=== PATIENT | male | born 1950 ===

== ENCOUNTER 2022-07-22 18:33 | Inpatient (IN) | payer MEDICARE, OTHER ==
[~2022-07-22] VITALS: Ht 177.8 cm; Wt 97.1 kg
[2022-07-22 21:55] VITALS: BP 149/80
[2022-07-22] MEDS ORDERED: MELATONIN 5 MG TABLET PO PRN (22:00)
[2022-07-22] MEDS ORDERED: DEXTROSE 50%-WATER 25 GM/50 ML SYRINGE IVP PRN (22:00)
[2022-07-22] MEDS ORDERED: INSULIN LISPRO 100 UNITS/ML SQ PRN (22:00)
[2022-07-22] MEDS: DOCUSATE SODIUM 100 MG CAPSULE PO SCH (22:45)
[2022-07-22] MEDS: ETHYL ALCOHOL 62% ANTISEPTIC NASAL SANITIZER 0.6 ML AMPUL NASAL SCH (22:45)
[2022-07-22] MEDS: METOPROLOL TARTRATE 25 MG TABLET PO SCH (22:46)
[2022-07-22] MEDS: APIXABAN 5 MG TABLET PO SCH (22:47)
[2022-07-22] MEDS: TAMSULOSIN HCL 0.4 MG CAPSULE PO SCH (22:47)
[2022-07-22] MEDS: SENNOSIDES 8.6 MG TABLET PO SCH (22:47)
[2022-07-22] MEDS: GABAPENTIN 100 MG CAPSULE PO SCH (22:48)
[2022-07-22] MEDS: ROSUVASTATIN CALCIUM 10 MG TABLET PO SCH (22:48)
[2022-07-22 23:41] LABS: GLUCOMETER DEV NAME(LOC) 2WR.2B; GLUCOSE,POINT OF CARE 117 MG/DL (70-110)
[2022-07-23] MEDS: BACLOFEN 10 MG TABLET PO PRN ×2 (01:25→23:59)
[2022-07-23] MEDS: METOCLOPRAMIDE HCL 10 MG TABLET PO SCH ×3 (06:29→16:56)
[2022-07-23] MEDS: HYDROCODONE/ACETAMINOPHEN 5-325 MG TABLET PO PRN ×2 (06:32→12:13)
[2022-07-23 07:01] LABS: BASOPHILS % (AUTO) 0.3 % (0.0-2.0); EOSINOPHILS % (AUTO) 0.8 % (1.0-6.0); HEMATOCRIT 31.7 % (41-53); HEMOGLOBIN 11.1 g/dL (13.5-17.5); LYMPHOCYTES # (AUTO) 0.7 K/uL (1.0-4.8); LYMPHOCYTES % (AUTO) 8.2 % (22.0-44.0); MEAN CORPUSCULAR HEMOGLOBIN 32.2 pg (26.0-34.0); MEAN CORPUSCULAR VOLUME 92 fL (80-100); MONOCYTES # (AUTO) 0.6 K/uL (0.1-1.0); MONOCYTES % (AUTO) 6.9 % (2.0-9.0); NEUTROPHILS # (AUTO) 7.4 K/uL (1.8-7.7); NEUTROPHILS % (AUTO) 83.8 % (40.0-70.0); PLATELET COUNT (AUTO) 244 K/uL (150-450); RED BLOOD CELL COUNT(AUTO) 3.45 MIL/uL (4.50-5.90)
[2022-07-23 07:13] LABS: ALANINE AMINOTRANSFERASE 62 U/L (12-78); ALBUMIN 2.5 g/dL (3.4-5.0); ALKALINE PHOSPHATASE 97 U/L (46-116); ANION GAP 5 mmol/L (8-16); ASPARTATE AMINOTRANSFERASE 34 U/L (15-37); BILIRUBIN,TOTAL 0.6 mg/dL (0.1-1.0); CALCIUM, TOTAL 8.9 mg/dL (8.8-10.5); CARBON DIOXIDE 30 mmol/L (22-29); CHLORIDE 104 mmol/L (98-107); CREATININE 0.66 mg/dL (0.60-1.30); GLOMERULAR FILTR. RATE CALC > 60 mL/min (>60); GLUCOSE,RANDOM 126 mg/dL (70-110); POTASSIUM 3.9 mmol/L (3.5-5.1); SODIUM SERUM 139 mmol/L (136-145); TOTAL PROTEIN, SERUM 6.1 g/dL (6.4-8.2); UREA NITROGEN, BLOOD 12 mg/dL (7-18)
[2022-07-23 07:55] LABS: GLUCOMETER DEV NAME(LOC) 2WR.1C; GLUCOSE,POINT OF CARE 110 MG/DL (70-110)
[2022-07-23 08:15] VITALS: BP 148/74
[2022-07-23] MEDS: FUROSEMIDE 20 MG TABLET PO SCH (08:26)
[2022-07-23] MEDS: NIFEdipine 90 MG ER TABLET PO SCH (08:27)
[2022-07-23] MEDS: OMEPRAZOLE 20 MG CAPSULE PO SCH (08:27)
[2022-07-23] MEDS: LOSARTAN POTASSIUM 50 MG TABLET PO SCH (08:27)
[2022-07-23] MEDS: APIXABAN 5 MG TABLET PO SCH ×2 (08:28→20:45)
[2022-07-23] MEDS: DOCUSATE SODIUM 100 MG CAPSULE PO SCH ×2 (08:28→21:00)
[2022-07-23] MEDS: GABAPENTIN 100 MG CAPSULE PO SCH ×3 (08:29→20:46)
[2022-07-23] MEDS: MetFORMIN HCL 500 MG TABLET PO SCH ×2 (08:29→17:40)
[2022-07-23] MEDS: METOPROLOL TARTRATE 25 MG TABLET PO SCH ×2 (08:29→20:46)
[2022-07-23] MEDS: LACTULOSE 20 GM/30 ML SOLUTION UDCUP PO SCH ×2 (08:30→21:00)
[2022-07-23] MEDS: POLYETHYLENE GLYCOL 3350 17 GM PACKET PO SCH (08:30)
[2022-07-23] MEDS: ETHYL ALCOHOL 62% ANTISEPTIC NASAL SANITIZER 0.6 ML AMPUL NASAL SCH ×2 (08:30→20:43)
[2022-07-23] MEDS: ACETAMINOPHEN 325 MG TABLET PO PRN (08:46)
[2022-07-23 12:51] LABS: GLUCOMETER DEV NAME(LOC) 2WR.1C; GLUCOSE,POINT OF CARE 112 MG/DL (70-110)
[2022-07-23 17:56] LABS: GLUCOMETER DEV NAME(LOC) 2WR.1C; GLUCOSE,POINT OF CARE 102 MG/DL (70-110)
[2022-07-23] MEDS: ROSUVASTATIN CALCIUM 10 MG TABLET PO SCH (20:45)
[2022-07-23] MEDS: TAMSULOSIN HCL 0.4 MG CAPSULE PO SCH (20:45)
[2022-07-23 21:00] VITALS: BP 149/67
[2022-07-23] MEDS: SENNOSIDES 8.6 MG TABLET PO SCH (21:00)
[2022-07-24 02:41] LABS: GLUCOMETER DEV NAME(LOC) 2WR.1C; GLUCOSE,POINT OF CARE 112 MG/DL (70-110)
[2022-07-24] MEDS: METOCLOPRAMIDE HCL 10 MG TABLET PO SCH ×2 (06:20→11:23)
[2022-07-24 06:41] LABS: GLUCOMETER DEV NAME(LOC) 2WR.2B; GLUCOSE,POINT OF CARE 88 MG/DL (70-110)
[2022-07-24 08:00] VITALS: BP 146/70
[2022-07-24] MEDS: NIFEdipine 90 MG ER TABLET PO SCH (08:06)
[2022-07-24] MEDS: GABAPENTIN 100 MG CAPSULE PO SCH ×3 (08:07→20:17)
[2022-07-24] MEDS: LOSARTAN POTASSIUM 50 MG TABLET PO SCH (08:07)
[2022-07-24] MEDS: MetFORMIN HCL 500 MG TABLET PO SCH ×2 (08:07→16:32)
[2022-07-24] MEDS: METOPROLOL TARTRATE 25 MG TABLET PO SCH ×2 (08:07→20:16)
[2022-07-24] MEDS: FUROSEMIDE 20 MG TABLET PO SCH (08:07)
[2022-07-24] MEDS: APIXABAN 5 MG TABLET PO SCH ×2 (08:07→20:17)
[2022-07-24] MEDS: OMEPRAZOLE 20 MG CAPSULE PO SCH (08:07)
[2022-07-24] MEDS: LACTULOSE 20 GM/30 ML SOLUTION UDCUP PO SCH ×2 (08:08→20:06)
[2022-07-24] MEDS: ETHYL ALCOHOL 62% ANTISEPTIC NASAL SANITIZER 0.6 ML AMPUL NASAL SCH ×2 (08:08→20:16)
[2022-07-24] MEDS: DOCUSATE SODIUM 100 MG CAPSULE PO SCH ×2 (08:10→20:17)
[2022-07-24] MEDS: POLYETHYLENE GLYCOL 3350 17 GM PACKET PO SCH (08:10)
[2022-07-24] MEDS: ACETAMINOPHEN 325 MG TABLET PO PRN ×2 (09:53→16:32)
[2022-07-24] MEDS ORDERED: TraZODone HCL 50 MG TABLET PO PRN (11:15)
[2022-07-24] MEDS: HYDROCODONE/ACETAMINOPHEN 5-325 MG TABLET PO PRN ×3 (13:29→22:35)
[2022-07-24 14:01] LABS: GLUCOMETER DEV NAME(LOC) 2WR.1C; GLUCOSE,POINT OF CARE 99 MG/DL (70-110)
[2022-07-24 17:51] LABS: GLUCOMETER DEV NAME(LOC) 2WR.2B; GLUCOSE,POINT OF CARE 127 MG/DL (70-110)
[2022-07-24] MEDS: BACLOFEN 10 MG TABLET PO PRN (19:47)
[2022-07-24 19:51] VITALS: BP 139/69
[2022-07-24] MEDS: SENNOSIDES 8.6 MG TABLET PO SCH (20:06)
[2022-07-24] MEDS: ROSUVASTATIN CALCIUM 10 MG TABLET PO SCH (20:16)
[2022-07-24] MEDS: TAMSULOSIN HCL 0.4 MG CAPSULE PO SCH (20:17)
[2022-07-24] MEDS ORDERED: METOCLOPRAMIDE HCL 10 MG TABLET PO SCH (21:00)
[2022-07-24 22:06] LABS: GLUCOMETER DEV NAME(LOC) 2WR.2B; GLUCOSE,POINT OF CARE 118 MG/DL (70-110)
[2022-07-25] MEDS: ACETAMINOPHEN 325 MG TABLET PO PRN (02:02)
[2022-07-25] MEDS: BACLOFEN 10 MG TABLET PO PRN ×3 (03:00→20:45)
[2022-07-25] MEDS: HYDROCODONE/ACETAMINOPHEN 5-325 MG TABLET PO PRN ×5 (03:00→20:45)
[2022-07-25 08:00] VITALS: BP 133/76
[2022-07-25] MEDS: FUROSEMIDE 20 MG TABLET PO SCH (08:48)
[2022-07-25] MEDS: GABAPENTIN 100 MG CAPSULE PO SCH ×3 (08:48→20:05)
[2022-07-25] MEDS: OMEPRAZOLE 20 MG CAPSULE PO SCH (08:49)
[2022-07-25] MEDS: LOSARTAN POTASSIUM 50 MG TABLET PO SCH (08:50)
[2022-07-25] MEDS: METOPROLOL TARTRATE 25 MG TABLET PO SCH ×2 (08:50→20:05)
[2022-07-25] MEDS: POLYETHYLENE GLYCOL 3350 17 GM PACKET PO SCH (08:50)
[2022-07-25] MEDS: MetFORMIN HCL 500 MG TABLET PO SCH ×2 (08:51→16:54)
[2022-07-25] MEDS: APIXABAN 5 MG TABLET PO SCH ×2 (08:51→20:05)
[2022-07-25] MEDS: ETHYL ALCOHOL 62% ANTISEPTIC NASAL SANITIZER 0.6 ML AMPUL NASAL SCH ×2 (08:52→20:06)
[2022-07-25] MEDS: LACTULOSE 20 GM/30 ML SOLUTION UDCUP PO SCH ×2 (09:00→20:04)
[2022-07-25] MEDS: DOCUSATE SODIUM 100 MG CAPSULE PO SCH ×2 (09:00→20:04)
[2022-07-25 09:21] LABS: GLUCOMETER DEV NAME(LOC) 2WR.1C; GLUCOSE,POINT OF CARE 108 MG/DL (70-110)
[2022-07-25 13:42] LABS: GLUCOMETER DEV NAME(LOC) 2WR.2B; GLUCOSE,POINT OF CARE 100 MG/DL (70-110)
[2022-07-25 17:26] LABS: GLUCOMETER DEV NAME(LOC) 2WR.2B; GLUCOSE,POINT OF CARE 106 MG/DL (70-110)
[2022-07-25 20:00] VITALS: BP 147/77
[2022-07-25] MEDS: SENNOSIDES 8.6 MG TABLET PO SCH (20:04)
[2022-07-25] MEDS: ROSUVASTATIN CALCIUM 10 MG TABLET PO SCH (20:05)
[2022-07-25] MEDS: TAMSULOSIN HCL 0.4 MG CAPSULE PO SCH (20:07)
[2022-07-25] MEDS: TraZODone HCL 100 MG TABLET PO PRN (20:45)
[2022-07-25 21:46] LABS: GLUCOMETER DEV NAME(LOC) 2WR.2B; GLUCOSE,POINT OF CARE 115 MG/DL (70-110)
[2022-07-26] MEDS: HYDROCODONE/ACETAMINOPHEN 5-325 MG TABLET PO PRN ×3 (01:00→23:53)
[2022-07-26] MEDS: APIXABAN 5 MG TABLET PO SCH ×2 (07:42→21:00)
[2022-07-26] MEDS: ETHYL ALCOHOL 62% ANTISEPTIC NASAL SANITIZER 0.6 ML AMPUL NASAL SCH ×2 (07:42→20:59)
[2022-07-26] MEDS: GABAPENTIN 100 MG CAPSULE PO SCH ×3 (07:42→21:00)
[2022-07-26] MEDS: FUROSEMIDE 20 MG TABLET PO SCH (07:42)
[2022-07-26] MEDS: MetFORMIN HCL 500 MG TABLET PO SCH ×2 (07:43→17:35)
[2022-07-26] MEDS: DOCUSATE SODIUM 100 MG CAPSULE PO SCH ×2 (07:43→21:00)
[2022-07-26] MEDS: OMEPRAZOLE 20 MG CAPSULE PO SCH (07:43)
[2022-07-26 07:46] LABS: GLUCOMETER DEV NAME(LOC) 2WR.2B; GLUCOSE,POINT OF CARE 99 MG/DL (70-110)
[2022-07-26] MEDS: METOPROLOL TARTRATE 25 MG TABLET PO SCH ×2 (08:01→21:00)
[2022-07-26] MEDS: LOSARTAN POTASSIUM 50 MG TABLET PO SCH (08:01)
[2022-07-26] MEDS: POLYETHYLENE GLYCOL 3350 17 GM PACKET PO SCH (08:04)
[2022-07-26] MEDS: LACTULOSE 20 GM/30 ML SOLUTION UDCUP PO SCH ×2 (08:04→21:00)
[2022-07-26 08:05] VITALS: BP 133/64
[2022-07-26] MEDS: MULTIVITAMINS WITH MINERALS, THERAPEUTIC TABLET PO SCH (08:07)
[2022-07-26 11:51] LABS: GLUCOMETER DEV NAME(LOC) 2WR.2B; GLUCOSE,POINT OF CARE 144 MG/DL (70-110)
[2022-07-26 17:16] LABS: GLUCOMETER DEV NAME(LOC) 2WR.1C; GLUCOSE,POINT OF CARE 122 MG/DL (70-110)
[2022-07-26 20:10] VITALS: BP 137/70
[2022-07-26] MEDS: ROSUVASTATIN CALCIUM 10 MG TABLET PO SCH (21:00)
[2022-07-26] MEDS: SENNOSIDES 8.6 MG TABLET PO SCH (21:00)
[2022-07-26] MEDS: TAMSULOSIN HCL 0.4 MG CAPSULE PO SCH (21:00)
[2022-07-26 21:31] LABS: GLUCOMETER DEV NAME(LOC) 2WR.1C; GLUCOSE,POINT OF CARE 114 MG/DL (70-110)
[2022-07-26] MEDS: TraZODone HCL 100 MG TABLET PO PRN (23:53)
[2022-07-26] MEDS: BACLOFEN 10 MG TABLET PO PRN (23:53)
[2022-07-27] MEDS ORDERED: OMEP20 PO (03:37)
[2022-07-27] MEDS ORDERED: ROSU10TA72 PO (03:37)
[2022-07-27] MEDS ORDERED: BACL10TA PO (03:37)
[2022-07-27] MEDS ORDERED: TAMS-13 PO (03:37)
[2022-07-27] MEDS ORDERED: MULT-1239 PO (03:37)
[2022-07-27] MEDS ORDERED: LOSA-382 PO (03:45)
[2022-07-27] MEDS ORDERED: DOCU-385 PO (03:45)
[2022-07-27] MEDS ORDERED: APIX5TAB PO (03:45)
[2022-07-27] MEDS ORDERED: FURO20 PO (03:45)
[2022-07-27] MEDS ORDERED: METO25 PO (03:45)
[2022-07-27] MEDS ORDERED: METF-1211 PO (03:45)
[2022-07-27] MEDS ORDERED: GABA-1216 PO (03:45)
[2022-07-27 08:05] VITALS: BP 140/70
[2022-07-27] MEDS: ETHYL ALCOHOL 62% ANTISEPTIC NASAL SANITIZER 0.6 ML AMPUL NASAL SCH ×2 (08:52→21:31)
[2022-07-27] MEDS: MetFORMIN HCL 500 MG TABLET PO SCH ×2 (08:52→16:24)
[2022-07-27] MEDS: LACTULOSE 20 GM/30 ML SOLUTION UDCUP PO SCH ×2 (08:53→21:00)
[2022-07-27] MEDS: DOCUSATE SODIUM 100 MG CAPSULE PO SCH ×2 (08:53→21:30)
[2022-07-27] MEDS: GABAPENTIN 100 MG CAPSULE PO SCH ×3 (08:54→21:30)
[2022-07-27] MEDS: METOPROLOL TARTRATE 25 MG TABLET PO SCH ×2 (08:54→21:31)
[2022-07-27] MEDS: LOSARTAN POTASSIUM 50 MG TABLET PO SCH (08:54)
[2022-07-27] MEDS: FUROSEMIDE 20 MG TABLET PO SCH (08:54)
[2022-07-27] MEDS: MULTIVITAMINS WITH MINERALS, THERAPEUTIC TABLET PO SCH (08:54)
[2022-07-27] MEDS: POLYETHYLENE GLYCOL 3350 17 GM PACKET PO SCH (08:54)
[2022-07-27] MEDS: OMEPRAZOLE 20 MG CAPSULE PO SCH (08:54)
[2022-07-27] MEDS: APIXABAN 5 MG TABLET PO SCH ×2 (08:54→21:31)
[2022-07-27] MEDS: HYDROCODONE/ACETAMINOPHEN 5-325 MG TABLET PO PRN (08:55)
[2022-07-27 12:46] LABS: GLUCOMETER DEV NAME(LOC) 2WR.1C; GLUCOSE,POINT OF CARE 103 MG/DL (70-110)
[2022-07-27 20:00] VITALS: BP 149/76
[2022-07-27] MEDS: SENNOSIDES 8.6 MG TABLET PO SCH (21:00)
[2022-07-27] MEDS: ROSUVASTATIN CALCIUM 10 MG TABLET PO SCH (21:30)
[2022-07-27] MEDS: TAMSULOSIN HCL 0.4 MG CAPSULE PO SCH (21:31)
[2022-07-28] MEDS: TraZODone HCL 100 MG TABLET PO PRN (00:11)
[2022-07-28] MEDS: BACLOFEN 10 MG TABLET PO PRN (00:11)
[2022-07-28] MEDS ORDERED: WATER FOR IRRIGATION,STERILE 1000 ML SOLUTION BOTTLE ONE (00:17)
[2022-07-28 05:31] LABS: GLUCOMETER DEV NAME(LOC) 2WR.1C; GLUCOSE,POINT OF CARE 94 MG/DL (70-110)
[2022-07-28 06:46] LABS: GLUCOMETER DEV NAME(LOC) 2WR.2B; GLUCOSE,POINT OF CARE 111 MG/DL (70-110)
[2022-07-28 08:02] VITALS: BP 135/73
[2022-07-28] MEDS: MULTIVITAMINS WITH MINERALS, THERAPEUTIC TABLET PO SCH (08:43)
[2022-07-28] MEDS: GABAPENTIN 100 MG CAPSULE PO SCH ×3 (08:43→21:01)
[2022-07-28] MEDS: APIXABAN 5 MG TABLET PO SCH ×2 (08:43→21:01)
[2022-07-28] MEDS: ETHYL ALCOHOL 62% ANTISEPTIC NASAL SANITIZER 0.6 ML AMPUL NASAL SCH ×2 (08:44→21:01)
[2022-07-28] MEDS: MetFORMIN HCL 500 MG TABLET PO SCH ×2 (08:44→17:20)
[2022-07-28] MEDS: OMEPRAZOLE 20 MG CAPSULE PO SCH (08:45)
[2022-07-28] MEDS: LOSARTAN POTASSIUM 50 MG TABLET PO SCH (08:45)
[2022-07-28] MEDS: FUROSEMIDE 20 MG TABLET PO SCH (08:45)
[2022-07-28] MEDS: METOPROLOL TARTRATE 25 MG TABLET PO SCH ×2 (08:45→21:01)
[2022-07-28] MEDS: POLYETHYLENE GLYCOL 3350 17 GM PACKET PO SCH (09:00)
[2022-07-28] MEDS: DOCUSATE SODIUM 100 MG CAPSULE PO SCH ×2 (09:00→21:00)
[2022-07-28] MEDS: LACTULOSE 20 GM/30 ML SOLUTION UDCUP PO SCH ×2 (09:00→21:00)
[2022-07-28] MEDS: HYDROCODONE/ACETAMINOPHEN 5-325 MG TABLET PO PRN (15:58)
[2022-07-28 17:37] LABS: GLUCOMETER DEV NAME(LOC) 2WR.2B; GLUCOSE,POINT OF CARE 112 MG/DL (70-110)
[2022-07-28 20:00] VITALS: BP 141/67
[2022-07-28] MEDS: SENNOSIDES 8.6 MG TABLET PO SCH (20:59)
[2022-07-28] MEDS: TAMSULOSIN HCL 0.4 MG CAPSULE PO SCH (21:01)
[2022-07-28] MEDS: ROSUVASTATIN CALCIUM 10 MG TABLET PO SCH (21:01)
[2022-07-29] MEDS: TraZODone HCL 100 MG TABLET PO PRN ×2 (00:23→23:23)
[2022-07-29] MEDS: BACLOFEN 10 MG TABLET PO PRN ×2 (00:23→23:22)
[2022-07-29 07:06] LABS: GLUCOMETER DEV NAME(LOC) 2WR.1C; GLUCOSE,POINT OF CARE 103 MG/DL (70-110)
[2022-07-29] MEDS: GABAPENTIN 100 MG CAPSULE PO SCH ×3 (08:37→20:47)
[2022-07-29] MEDS: MetFORMIN HCL 500 MG TABLET PO SCH ×2 (08:37→16:50)
[2022-07-29] MEDS: MULTIVITAMINS WITH MINERALS, THERAPEUTIC TABLET PO SCH (08:38)
[2022-07-29] MEDS: FUROSEMIDE 20 MG TABLET PO SCH (08:38)
[2022-07-29] MEDS: OMEPRAZOLE 20 MG CAPSULE PO SCH (08:38)
[2022-07-29] MEDS: METOPROLOL TARTRATE 25 MG TABLET PO SCH ×2 (08:38→20:47)
[2022-07-29] MEDS: LOSARTAN POTASSIUM 50 MG TABLET PO SCH (08:39)
[2022-07-29] MEDS: ETHYL ALCOHOL 62% ANTISEPTIC NASAL SANITIZER 0.6 ML AMPUL NASAL SCH ×2 (08:39→20:47)
[2022-07-29] MEDS: POLYETHYLENE GLYCOL 3350 17 GM PACKET PO SCH (08:40)
[2022-07-29] MEDS: DOCUSATE SODIUM 100 MG CAPSULE PO SCH ×2 (08:40→20:50)
[2022-07-29] MEDS: LACTULOSE 20 GM/30 ML SOLUTION UDCUP PO SCH (08:40)
[2022-07-29 08:44] VITALS: BP 139/69
[2022-07-29] MEDS: APIXABAN 5 MG TABLET PO SCH ×2 (08:44→20:47)
[2022-07-29] MEDS: HYDROCODONE/ACETAMINOPHEN 5-325 MG TABLET PO PRN ×3 (08:44→20:46)
[2022-07-29 20:00] VITALS: BP 133/62
[2022-07-29] MEDS: TAMSULOSIN HCL 0.4 MG CAPSULE PO SCH (20:47)
[2022-07-29] MEDS: ROSUVASTATIN CALCIUM 10 MG TABLET PO SCH (20:50)
[2022-07-29] MEDS: SENNOSIDES 8.6 MG TABLET PO SCH (20:51)
[2022-07-30 08:00] VITALS: BP 142/67
[2022-07-30] MEDS: MetFORMIN HCL 500 MG TABLET PO SCH ×2 (08:44→17:12)
[2022-07-30] MEDS: METOPROLOL TARTRATE 25 MG TABLET PO SCH ×2 (08:45→20:11)
[2022-07-30] MEDS: APIXABAN 5 MG TABLET PO SCH ×2 (08:45→20:10)
[2022-07-30] MEDS: OMEPRAZOLE 20 MG CAPSULE PO SCH (08:45)
[2022-07-30] MEDS: LOSARTAN POTASSIUM 50 MG TABLET PO SCH (08:45)
[2022-07-30] MEDS: ETHYL ALCOHOL 62% ANTISEPTIC NASAL SANITIZER 0.6 ML AMPUL NASAL SCH ×2 (08:45→20:10)
[2022-07-30] MEDS: GABAPENTIN 100 MG CAPSULE PO SCH ×3 (08:45→20:11)
[2022-07-30] MEDS: MULTIVITAMINS WITH MINERALS, THERAPEUTIC TABLET PO SCH (08:45)
[2022-07-30] MEDS: FUROSEMIDE 20 MG TABLET PO SCH (08:45)
[2022-07-30] MEDS: DOCUSATE SODIUM 100 MG CAPSULE PO SCH ×2 (08:46→20:10)
[2022-07-30] MEDS: NIFEdipine 90 MG ER TABLET PO SCH (12:47)
[2022-07-30] MEDS: POLYETHYLENE GLYCOL 3350 17 GM PACKET PO PRN (14:04)
[2022-07-30] MEDS: TAMSULOSIN HCL 0.4 MG CAPSULE PO SCH (20:10)
[2022-07-30] MEDS: ROSUVASTATIN CALCIUM 10 MG TABLET PO SCH (20:10)
[2022-07-30 20:11] VITALS: BP 108/58
[2022-07-30] MEDS: SENNOSIDES 8.6 MG TABLET PO SCH (20:11)
[2022-07-30] MEDS: ACETAMINOPHEN 325 MG TABLET PO PRN (22:30)
[2022-07-31] MEDS: BACLOFEN 10 MG TABLET PO PRN ×2 (00:02→23:23)
[2022-07-31] MEDS: TraZODone HCL 100 MG TABLET PO PRN ×2 (00:02→23:20)
[2022-07-31 08:15] VITALS: BP 120/62
[2022-07-31] MEDS: OMEPRAZOLE 20 MG CAPSULE PO SCH (09:48)
[2022-07-31] MEDS: MetFORMIN HCL 500 MG TABLET PO SCH ×2 (09:48→17:39)
[2022-07-31] MEDS: DOCUSATE SODIUM 100 MG CAPSULE PO SCH ×2 (09:48→20:16)
[2022-07-31] MEDS: LOSARTAN POTASSIUM 50 MG TABLET PO SCH (09:48)
[2022-07-31] MEDS: ETHYL ALCOHOL 62% ANTISEPTIC NASAL SANITIZER 0.6 ML AMPUL NASAL SCH ×2 (09:48→20:16)
[2022-07-31] MEDS: APIXABAN 5 MG TABLET PO SCH ×2 (09:48→20:17)
[2022-07-31] MEDS: FUROSEMIDE 20 MG TABLET PO SCH (09:49)
[2022-07-31] MEDS: METOPROLOL TARTRATE 25 MG TABLET PO SCH ×2 (09:49→20:18)
[2022-07-31] MEDS: MULTIVITAMINS WITH MINERALS, THERAPEUTIC TABLET PO SCH (09:50)
[2022-07-31] MEDS: NIFEdipine 90 MG ER TABLET PO SCH (09:50)
[2022-07-31] MEDS: GABAPENTIN 100 MG CAPSULE PO SCH (09:50)
[2022-07-31] MEDS: HYDROCODONE/ACETAMINOPHEN 5-325 MG TABLET PO PRN (09:52)
[2022-07-31] MEDS: ACETAMINOPHEN 325 MG TABLET PO PRN (13:29)
[2022-07-31] MEDS: LACTULOSE 20 GM/30 ML SOLUTION UDCUP PO PRN (13:29)
[2022-07-31] MEDS: GABAPENTIN 300 MG CAPSULE PO SCH ×2 (16:05→20:16)
[2022-07-31 20:14] VITALS: BP 140/73
[2022-07-31] MEDS: TAMSULOSIN HCL 0.4 MG CAPSULE PO SCH (20:16)
[2022-07-31] MEDS: ROSUVASTATIN CALCIUM 10 MG TABLET PO SCH (20:17)
[2022-07-31] MEDS: SENNOSIDES 8.6 MG TABLET PO SCH (20:17)
[2022-07-31] MEDS: DICLOFENAC SODIUM 1% 100 GM GEL [2GM] TP PRN (20:18)
[2022-08-01] MEDS: POLYETHYLENE GLYCOL 3350 17 GM PACKET PO PRN (06:27)
[2022-08-01 07:12] LABS: BASOPHILS % (AUTO) 0.6 % (0.0-2.0); EOSINOPHILS % (AUTO) 2.3 % (1.0-6.0); HEMATOCRIT 32.7 % (41-53); HEMOGLOBIN 11.2 g/dL (13.5-17.5); LYMPHOCYTES # (AUTO) 0.7 K/uL (1.0-4.8); LYMPHOCYTES % (AUTO) 14.3 % (22.0-44.0); MEAN CORPUSCULAR HEMOGLOBIN 31.8 pg (26.0-34.0); MEAN CORPUSCULAR HGB CONC 34.3 G/dL (31.0-37.0); MEAN CORPUSCULAR VOLUME 93 fL (80-100); MONOCYTES # (AUTO) 0.4 K/uL (0.1-1.0); MONOCYTES % (AUTO) 9.5 % (2.0-9.0); NEUTROPHILS # (AUTO) 3.4 K/uL (1.8-7.7); NEUTROPHILS % (AUTO) 73.3 % (40.0-70.0); PLATELET COUNT (AUTO) 186 K/uL (150-450); RED BLOOD CELL COUNT(AUTO) 3.53 MIL/uL (4.50-5.90); RED CELL DISTRIBUTION WIDTH 13.5 % (11.5-14.5)
[2022-08-01 07:26] LABS: ANION GAP 4 mmol/L (8-16); CALCIUM, TOTAL 9.2 mg/dL (8.8-10.5); CARBON DIOXIDE 32 mmol/L (22-29); CHLORIDE 102 mmol/L (98-107); CREATININE 0.66 mg/dL (0.60-1.30); GLOMERULAR FILTR. RATE CALC > 60 mL/min (>60); GLUCOSE,RANDOM 123 mg/dL (70-110); POTASSIUM 3.6 mmol/L (3.5-5.1); SODIUM SERUM 138 mmol/L (136-145); UREA NITROGEN, BLOOD 9 mg/dL (7-18)
[2022-08-01 07:50] VITALS: BP 143/71
[2022-08-01] MEDS: GABAPENTIN 300 MG CAPSULE PO SCH ×3 (08:22→20:26)
[2022-08-01] MEDS: MetFORMIN HCL 500 MG TABLET PO SCH ×2 (08:22→16:42)
[2022-08-01] MEDS: APIXABAN 5 MG TABLET PO SCH ×2 (08:22→20:26)
[2022-08-01] MEDS: MULTIVITAMINS WITH MINERALS, THERAPEUTIC TABLET PO SCH (08:23)
[2022-08-01] MEDS: LOSARTAN POTASSIUM 50 MG TABLET PO SCH (08:23)
[2022-08-01] MEDS: ETHYL ALCOHOL 62% ANTISEPTIC NASAL SANITIZER 0.6 ML AMPUL NASAL SCH ×2 (08:23→20:26)
[2022-08-01] MEDS: METOPROLOL TARTRATE 25 MG TABLET PO SCH ×2 (08:23→20:29)
[2022-08-01] MEDS: FUROSEMIDE 20 MG TABLET PO SCH (08:23)
[2022-08-01] MEDS: DOCUSATE SODIUM 100 MG CAPSULE PO SCH ×2 (08:23→20:27)
[2022-08-01] MEDS: OMEPRAZOLE 20 MG CAPSULE PO SCH (08:24)
[2022-08-01] MEDS: NIFEdipine 90 MG ER TABLET PO SCH (08:24)
[2022-08-01] MEDS: LACTULOSE 20 GM/30 ML SOLUTION UDCUP PO PRN ×2 (14:19→14:43)
[2022-08-01] MEDS: ROSUVASTATIN CALCIUM 10 MG TABLET PO SCH (20:26)
[2022-08-01] MEDS: SENNOSIDES 8.6 MG TABLET PO SCH (20:26)
[2022-08-01] MEDS: DICLOFENAC SODIUM 1% 100 GM GEL [2GM] TP PRN (20:26)
[2022-08-01] MEDS: TAMSULOSIN HCL 0.4 MG CAPSULE PO SCH (20:27)
[2022-08-01 20:28] VITALS: BP 131/64
[2022-08-02] MEDS: MetFORMIN HCL 500 MG TABLET PO SCH ×2 (08:01→16:45)
[2022-08-02] MEDS: MULTIVITAMINS WITH MINERALS, THERAPEUTIC TABLET PO SCH (08:01)
[2022-08-02] MEDS: METOPROLOL TARTRATE 25 MG TABLET PO SCH ×2 (08:01→21:45)
[2022-08-02] MEDS: DOCUSATE SODIUM 100 MG CAPSULE PO SCH ×2 (08:01→21:44)
[2022-08-02] MEDS: FUROSEMIDE 20 MG TABLET PO SCH (08:01)
[2022-08-02] MEDS: APIXABAN 5 MG TABLET PO SCH ×2 (08:01→21:45)
[2022-08-02] MEDS: GABAPENTIN 300 MG CAPSULE PO SCH ×3 (08:01→21:45)
[2022-08-02] MEDS: OMEPRAZOLE 20 MG CAPSULE PO SCH (08:01)
[2022-08-02] MEDS: LOSARTAN POTASSIUM 50 MG TABLET PO SCH (08:01)
[2022-08-02] MEDS: ETHYL ALCOHOL 62% ANTISEPTIC NASAL SANITIZER 0.6 ML AMPUL NASAL SCH ×2 (08:01→21:44)
[2022-08-02] MEDS: NIFEdipine 90 MG ER TABLET PO SCH (08:01)
[2022-08-02] MEDS: POLYETHYLENE GLYCOL 3350 17 GM PACKET PO PRN (08:03)
[2022-08-02] MEDS: ACETAMINOPHEN 325 MG TABLET PO PRN (08:03)
[2022-08-02 08:05] VITALS: BP 138/66
[2022-08-02 09:53] VITALS: BP 138/66
[2022-08-02] MEDS: ROSUVASTATIN CALCIUM 10 MG TABLET PO SCH (21:44)
[2022-08-02] MEDS: SENNOSIDES 8.6 MG TABLET PO SCH (21:45)
[2022-08-02] MEDS: TAMSULOSIN HCL 0.4 MG CAPSULE PO SCH (21:45)
[2022-08-03 08:00] VITALS: BP 114/57
[2022-08-03] MEDS: MetFORMIN HCL 500 MG TABLET PO SCH ×2 (08:59→16:40)
[2022-08-03] MEDS: OMEPRAZOLE 20 MG CAPSULE PO SCH (09:00)
[2022-08-03] MEDS: MULTIVITAMINS WITH MINERALS, THERAPEUTIC TABLET PO SCH (09:00)
[2022-08-03] MEDS: ETHYL ALCOHOL 62% ANTISEPTIC NASAL SANITIZER 0.6 ML AMPUL NASAL SCH ×2 (09:00→21:37)
[2022-08-03] MEDS: DOCUSATE SODIUM 100 MG CAPSULE PO SCH ×2 (09:01→21:39)
[2022-08-03] MEDS: APIXABAN 5 MG TABLET PO SCH ×2 (09:01→21:38)
[2022-08-03] MEDS: LOSARTAN POTASSIUM 50 MG TABLET PO SCH (09:01)
[2022-08-03] MEDS: FUROSEMIDE 20 MG TABLET PO SCH (09:02)
[2022-08-03] MEDS: METOPROLOL TARTRATE 25 MG TABLET PO SCH ×2 (09:02→21:39)
[2022-08-03] MEDS: GABAPENTIN 300 MG CAPSULE PO SCH ×3 (09:03→21:38)
[2022-08-03] MEDS: NIFEdipine 90 MG ER TABLET PO SCH (09:04)
[2022-08-03 09:35] LABS: ANION GAP 7 mmol/L (8-16); CALCIUM, TOTAL 8.9 mg/dL (8.8-10.5); CARBON DIOXIDE 30 mmol/L (22-29); CHLORIDE 102 mmol/L (98-107); CREATININE 0.65 mg/dL (0.60-1.30); GLOMERULAR FILTR. RATE CALC > 60 mL/min (>60); GLUCOSE,RANDOM 164 mg/dL (70-110); POTASSIUM 4.2 mmol/L (3.5-5.1); SODIUM SERUM 139 mmol/L (136-145); UREA NITROGEN, BLOOD 17 mg/dL (7-18)
[2022-08-03] MEDS: POLYETHYLENE GLYCOL 3350 17 GM PACKET PO PRN (16:39)
[2022-08-03 20:10] VITALS: BP 148/66
[2022-08-03] MEDS: ROSUVASTATIN CALCIUM 10 MG TABLET PO SCH (21:38)
[2022-08-03] MEDS: TAMSULOSIN HCL 0.4 MG CAPSULE PO SCH (21:38)
[2022-08-03] MEDS: SENNOSIDES 8.6 MG TABLET PO SCH (21:39)
[2022-08-03] MEDS: DICLOFENAC SODIUM 1% 100 GM GEL [2GM] TP PRN (21:40)
[2022-08-03] MEDS: ACETAMINOPHEN 325 MG TABLET PO PRN (23:52)
[2022-08-04] MEDS: METOPROLOL TARTRATE 25 MG TABLET PO SCH (08:03)
[2022-08-04] MEDS: MULTIVITAMINS WITH MINERALS, THERAPEUTIC TABLET PO SCH (08:03)
[2022-08-04] MEDS: APIXABAN 5 MG TABLET PO SCH (08:03)
[2022-08-04] MEDS: MetFORMIN HCL 500 MG TABLET PO SCH (08:03)
[2022-08-04] MEDS: LOSARTAN POTASSIUM 50 MG TABLET PO SCH (08:03)
[2022-08-04] MEDS: DOCUSATE SODIUM 100 MG CAPSULE PO SCH (08:03)
[2022-08-04] MEDS: GABAPENTIN 300 MG CAPSULE PO SCH (08:03)
[2022-08-04 08:05] VITALS: BP 142/76
[2022-08-04] MEDS: ACETAMINOPHEN 325 MG TABLET PO PRN (08:33)
[2022-08-04] MEDS: ETHYL ALCOHOL 62% ANTISEPTIC NASAL SANITIZER 0.6 ML AMPUL NASAL SCH (08:34)
[2022-08-04] MEDS: NIFEdipine 90 MG ER TABLET PO SCH (09:11)
[2022-08-04] MEDS: OMEPRAZOLE 20 MG CAPSULE PO SCH (09:11)
[2022-08-04] MEDS: FUROSEMIDE 20 MG TABLET PO SCH (09:11)
[2022-08-04] MEDS ORDERED: NIFE90TA4 PO (10:05)
== END 2022-08-04 11:30 | disposition home health service (06) | DRG 552 ==
LOC: 2WR 21:30
PROVIDERS: ADMIT Physical Medicine & Rehabilitation; ATTEND Physical Medicine & Rehabilitation
DX: M48.061 Spinal stenosis, lumbar region without neurogenic claudication (principal); E46 Unspecified protein-calorie malnutrition; G82.20 Paraplegia, unspecified; I82.442 Acute embolism and thrombosis of left tibial vein; K56.7 Ileus, unspecified; K91.89 Other postprocedural complications and disorders of digestive system; N40.0 Benign prostatic hyperplasia without lower urinary tract symptoms; G47.00 Insomnia, unspecified; G47.33 Obstructive sleep apnea (adult) (pediatric); E11.40 Type 2 diabetes mellitus with diabetic neuropathy, unspecified; E66.9 Obesity, unspecified; F10.10 Alcohol abuse, uncomplicated; F41.9 Anxiety disorder, unspecified; I10 Essential (primary) hypertension; I73.00 Raynaud's syndrome without gangrene; R26.9 Unspecified abnormalities of gait and mobility; M43.16 Spondylolisthesis, lumbar region; M19.90 Unspecified osteoarthritis, unspecified site; M54.9 Dorsalgia, unspecified; M47.816 Spondylosis without myelopathy or radiculopathy, lumbar region; E78.5 Hyperlipidemia, unspecified; R33.9 Retention of urine, unspecified; Z98.1 Arthrodesis status; Z80.7 Family history of other malignant neoplasms of lymphoid, hematopoietic and related tissues; Z80.0 Family history of malignant neoplasm of digestive organs; Z63.4 Disappearance and death of family member; Z79.01 Long term (current) use of anticoagulants; Z82.49 Family history of ischemic heart disease and other diseases of the circulatory system; Z87.891 Personal history of nicotine dependence; Z83.3 Family history of diabetes mellitus; Z68.30 Body mass index [BMI] 30.0-30.9, adult
CPT/HCPCS: 80048; 80053; 82962; 83735; 85025; 87081; 97110; 97112; 97116; 97140; 97150; 97162; 97167; 97530; 97535; 99366; Q9967